=== PATIENT | male | born 1950 | race Asian ===

== ENCOUNTER 2019-04-18 14:06 | Emergency (ER) | payer MEDICAID, SELFPAY ==
[2019-04-18 14:10] VITALS: BP 173/94; PULSE 79; RESP 15; TEMP 36.3; O2SAT 98; BMI 25.7
--- NOTE | 2019-04-18 14:17 | DI.RAD.S_ITS ---
PROCEDURE: XR CHEST 1V INDICATIONS: Chest pain TECHNIQUE: One view of the chest was acquired. COMPARISON: None. FINDINGS: Surgical changes and devices: None. Lungs and pleura: Mild increased vascularity.. No pleural effusions or pneumothorax. Mediastinum: Mediastinal contours appear normal. Heart size is mildly prominent. Bones and chest wall: No suspicious bony lesions. Overlying soft tissues appear unremarkable. IMPRESSION: Increased vascularity suggestive of edema. Dictated by: Jaylin Arrington M.D. on 04/18/2019 at 13:53 Approved by: Jaylin Arrington M.D. on 04/18/2019 at 13:53
[2019-04-18 14:27] LABS: Add Manual Diff / Slide Review NO; Basophils Absolute Auto 0 /uL (0-100); Basophils Percent Auto 0.7 % (0-2); Eosinophils Absolute Auto 300 /uL (0-450); Eosinophils Percent Auto 4.7 % (2-4); Hematocrit 40.1 % (41-53); Hemoglobin 13.9 g/dL (13.5-17.5); Lymphocytes Absolute Auto 1800 /uL (1100-4500); Lymphocytes Percent Auto 32.7 % (25-40); Mean Corpuscular HGB Conc 34.7 % (30-36); Mean Corpuscular Volume 86.7 fL (80-100); Monocytes Absolute Auto 500 /uL (0-900); Monocytes Percent Auto 8.8 % (3-14); Neutrophils Absolute Auto 2900 /uL (1500-7000); Neutrophils Percent Auto 53.1 % (50-75); Platelet Count 203 X10^3/uL (150-400); Red Blood Cell Count 4.62 X10^6/uL (4.5-5.9); Red Cell Distribution Width 14.3 % (11.6-14.8); White Blood Cell Count 5.4 X10^3/uL (4.5-11.0)
[2019-04-18 14:33] LABS: INR 1.1 (0.9-1.3); Prothrombin Time 12.2 SECONDS (10.1-12.7)
[2019-04-18 14:35] LABS: PTT Partial Thromboplastin Tim 29 SECONDS (26.4-36.2)
[2019-04-18 14:37] LABS: Alanine Aminotransferase 31 IU/L (<50); Albumin 4.7 g/dL (3.5-5.0); Albumin Globulin Ratio 1.5 (1.0-2.8); Alkaline Phosphatase 73 U/L (38-126); Aspartate Aminotransferase 37 IU/L (17-59); Bilirubin Total 1.4 mg/dL (0.2-1.3); Blood Urea Nitrogen 11 mg/dL (9-20); Calcium 9.6 mg/dL (8.4-10.2); Carbon Dioxide 30 mmol/L (22-32); Chloride 97 mmol/L (98-107); Estimated Glomerular Filt Rate > 60.0 mL/min (>60); Globulin 3.2 g/dL (1.7-4.1); Glucose 157 mg/dL (80-110); HEMOLYSIS < 15 (0-50); Lipase 102 U/L (23-300); Potassium 3.9 mmol/L (3.4-5.1); Sodium 135 mmol/L (137-145); Total Protein 7.9 g/dL (6.3-8.2)
--- NOTE | 2019-04-18 14:57 | ED_ITS ---
HPI - Chest Pain General Chief Complaint: Chest Pain Stated Complaint: chest pain - sent from [place] Time Seen by Provider: 04/18/19 14:16 Source: patient Mode of arrival: Ambulatory Limitations: no limitations History of Present Illness HPI narrative: 68-year-old male sent over from the walk-in clinic for evaluation of chest pain. He states that for the past several weeks if not past several months he has had occasional chest discomfort. Somewhat difficult for him to express the type of discomfort he is having however does appear to be gradual onset that eventually resolves on its own. Does not seem to be associated with shortness of breath. Not worse with movement or palpation or breathing. Has not talk with his primary doctor about this. Has recently had a stroke. Has left-sided deficits from this. He states that last evening he had left-sided discomfort similar to his prior episodes. He was sitting on the couch at the time. Again not worse with palpation breathing or movement. He states that it has been continuous since last evening. Did have times when the pain was worse than others. He is currently having discomfort. Has not tried anything for his pain prior to arrival. Related Data Home Medications Medication Instructions Recorded Confirmed aspirin 81 mg PO DAILY 04/18/19 04/18/19 atorvastatin 40 mg PO QPM 04/18/19 04/18/19 clopidogrel 75 mg PO DAILY 04/18/19 04/18/19 metformin 500 mg PO BID 04/18/19 04/18/19 Previous Rx's Medication Instructions Recorded aspirin [Enteric Coated Aspirin] 81 mg PO DAILY #30 tab 04/18/19 atorvastatin 40 mg PO BEDTIME #30 tab 04/18/19 clopidogrel [Plavix] 75 mg PO DAILY #30 tab 04/18/19 metformin 500 mg PO BID #60 tab 04/18/19 Allergies Allergy/AdvReac Type Severity Reaction Status Date / Time No Known Drug Allergies Allergy Verified 04/18/19 14:21 Review of Systems Constitutional Constitutional: Denies headache(s) ENT Ears, Nose, Mouth, and Throat: Denies headache(s) Cardiovascular Cardiovascular: Reports chest pain, Denies rapid heart rate, Denies pedal edema and Denies dyspnea Respiratory Respiratory: Denies cough and Denies dyspnea Gastrointestinal Gastrointestinal: Denies abdominal pain, Denies nausea and Denies vomiting Musculoskeletal Musculoskeletal: Denies myalgias and Denies arthralgias Integumentary/Breasts Skin/Breast: Denies lesions and Denies rash Neurologic Neurologic: Denies behavioral changes and Denies headache(s) Psychiatric Psychiatric: Denies behavioral changes Hematologic/Lymphatic Hematologic/Lymphatic: Denies easy bleeding and Denies easy bruising Patient History Medical History Diabetes (Acute) History of stroke (Acute) Social History Smoking Status: Unknown if ever smoked alcohol intake frequency: holidays/special occasions only Substance Use Type: does not use Exam Initial Vital Signs Initial Vital Signs: Vital Signs Temperature 97.3 F L 04/18/19 14:10 Pulse Rate 79 04/18/19 14:10 Respiratory Rate 15 04/18/19 14:10 Blood Pressure 173/94 H 04/18/19 14:10 Pulse Oximetry 98 04/18/19 14:10 Const General: cooperative, comfortable and well developed Orientation: alert, awake and oriented x3 HENMT Head: normal to inspection and normocephalic Resp Effort & Inspection: normal respiratory effort Auscultation: clear to auscultation bilaterally Cardio Rate: regular rate Rhythm: regular rhythm GI Inspection: non-distended Palpation: soft, No firm and No tender Skin Lesions: no lesions Rashes: no rashes Neuro General: alert, awake and oriented x3 Cognition: normal cognition Speech: speech normal Motor: muscle tone normal throughout Extrem General: normal to inspection and capillary refill normal Psych Appearance: grossly normal and well kempt Scores GCS Valentín coma scale eye opening: Spontaneous Valentín coma scale verbal response: Orientated Valentín coma scale motor response: Obey commands Yale coma scale total score: 15 HEART Score Heart Score history: Slightly Suspicious Heart Score EKG: Normal Heart Score Age: > or = 65 years old Heart Score risk factors: 1-2 risk factors Heart Score troponin: < or = to normal limit Heart Score Total: 3 Course Orders Ordered: ED Orders 04/18/19 14:17 XR chest 1V Stat B Type Natriuretic Peptide Stat Complete Blood Count AUTO DIFF Stat Comprehensive Metabolic Panel Stat Lipase Stat Partial Thromboplastin Time Stat Prothrombin Time INR Stat Troponin I Stat EKG-12 Lead Stat 04/18/19 17:16 Troponin I Stat Vital Signs Vital signs: Vital Signs - 8 hr 04/18/19 14:10 04/18/19 15:45 04/18/19 16:15 Temperature 97.3 F L Pulse Rate 79 71 70 Respiratory Rate 15 16 16 Blood Pressure 173/94 H Blood Pressure [Left Arm] 133/83 153/91 H Pulse Oximetry 98 96 98 04/18/19 16:45 04/18/19 17:15 Temperature Pulse Rate 69 70 Respiratory Rate 14 14 Blood Pressure Blood Pressure [Left Arm] 134/69 125/63 Pulse Oximetry 99 98 MDM - Chest Pain Lab Data Attestation: I reviewed the patient's lab results. Result diagrams: 04/18/19 14:17 04/18/19 14:17 Labs: Lab Results 04/18/19 04/18/19 04/18/19 Range/Units 14:17 14:17 14:17 WBC 5.4 (4.5-11.0) X10^3/uL RBC 4.62 (4.5-5.9) X10^6/uL Hgb 13.9 (13.5-17.5) g/dL Hct 40.1 L (41-53) % MCV 86.7 (80-100) fL MCH 30.0 (26-34) PG MCHC 34.7 (30-36) % RDW 14.3 (11.6-14.8) % Plt Count 203 (150-400) X10^3/uL Neut % (Auto) 53.1 (50-75) % Lymph % (Auto) 32.7 (25-40) % [place] % (Auto) 8.8 (3-14) % Eos % (Auto) 4.7 H (2-4) % Baso % (Auto) 0.7 (0-2) % Neut # (Auto) 2900 (9403-1724) /uL Lymph # (Auto) 1800 (7348-5053) /uL [place] # (Auto) 500 (0-900) /uL Eos # (Auto) 300 (0-450) /uL Baso # (Auto) 0 (0-100) /uL PT 12.2 (10.1-12.7) SECONDS INR 1.1 (0.9-1.3) APTT 29 (26.4-36.2) SECONDS Sodium 135 L (137-145) mmol/L Potassium 3.9 (3.4-5.1) mmol/L Chloride 97 L (98-107) mmol/L Carbon Dioxide 30 (22-32) mmol/L BUN 11 (9-20) mg/dL Creatinine 1.10 (0.66-1.25) mg/dL Estimated GFR > 60.0 (>60) mL/min BUN/Creatinine Ratio 10.0 (6-22) Glucose 157 H (80-110) mg/dL Calcium 9.6 (8.4-10.2) mg/dL Total Bilirubin 1.4 H (0.2-1.3) mg/dL AST 37 (17-59) IU/L ALT 31 (<50) IU/L Alkaline Phosphatase 73 (38-126) U/L Troponin I (0.01-0.034) ng/mL B-Natriuretic Peptide (<100) Total Protein 7.9 (6.3-8.2) g/dL Albumin 4.7 (3.5-5.0) g/dL Globulin 3.2 (1.7-4.1) g/dL Albumin/Globulin Ratio 1.5 (1.0-2.8) Lipase 102 (23-300) U/L 04/18/19 04/18/19 04/18/19 Range/Units 14:17 14:17 17:16 WBC (4.5-11.0) X10^3/uL RBC (4.5-5.9) X10^6/uL Hgb (13.5-17.5) g/dL Hct (41-53) % MCV (80-100) fL MCH (26-34) PG MCHC (30-36) % RDW (11.6-14.8) % Plt Count (150-400) X10^3/uL Neut % (Auto) (50-75) % Lymph % (Auto) (25-40) % [place] % (Auto) (3-14) % Eos % (Auto) (2-4) % Baso % (Auto) (0-2) % Neut # (Auto) (6080-1717) /uL Lymph # (Auto) (2452-0986) /uL [place] # (Auto) (0-900) /uL Eos # (Auto) (0-450) /uL Baso # (Auto) (0-100) /uL PT (10.1-12.7) SECONDS INR (0.9-1.3) APTT (26.4-36.2) SECONDS Sodium (137-145) mmol/L Potassium (3.4-5.1) mmol/L Chloride (98-107) mmol/L Carbon Dioxide (22-32) mmol/L BUN (9-20) mg/dL Creatinine (0.66-1.25) mg/dL Estimated GFR (>60) mL/min BUN/Creatinine Ratio (6-22) Glucose (80-110) mg/dL Calcium (8.4-10.2) mg/dL Total Bilirubin (0.2-1.3) mg/dL AST (17-59) IU/L ALT (<50) IU/L Alkaline Phosphatase (38-126) U/L Troponin I < 0.012 < 0.012 (0.01-0.034) ng/mL B-Natriuretic Peptide < 100 (<100) Total Protein (6.3-8.2) g/dL Albumin (3.5-5.0) g/dL Globulin (1.7-4.1) g/dL Albumin/Globulin Ratio (1.0-2.8) Lipase (23-300) U/L Imaging Data Chest x-ray: Radiologist's impression: [place] [address] XRay Report Signed Patient: Nicole Gonzalez#: [id number] : 2Acct:[id number] Age/Sex: 68 / MDate of Service: 04/18/19 Loc: ED Accession Number: [id number] Procedure: XR chest 1V Ordering Provider: John Duffy D.O. PROCEDURE: XR CHEST 1V INDICATIONS: Chest pain TECHNIQUE: One view of the chest was acquired. COMPARISON: None. FINDINGS: Surgical changes and devices: None. Lungs and pleura: Mild increased vascularity.. No pleural effusions or pneumo thorax. Mediastinum: Mediastinal contours appear normal. Heart size is mildly prominent. Bones and chest wall: No suspicious bony lesions. Overlying soft tissues appear unremarkable. IMPRESSION: Increased vascularity suggestive of edema. Dictated by: Jaylin Arrington M.D. on 04/18/2019 at 13:53 Approved by: Jaylin Arrington M.D. on 04/18/2019 at 13:53 ECG Data Attestation: I personally reviewed and interpreted this ECG as follows: Prior ECG tracings: not available for review Interpretation: Sinus rhythm Ventricular rate of 75 Normal axis Normal intervals Normal QRS Normal QTC No ST T wave changes MDM Narrative Medical decision making narrative: Patient is low risk heart score. EKG is unremarkable. Troponins negative x2. Chest x-ray is negative. Has a follow-up with his primary doctor on the of this month. Refilled his medications. Was given return precautions and follow-up instructions. Discharge Plan Departure Patient Disposition: Home Clinical Impression: Atypical chest pain Instructions: DI for Atypical Chest Pain Activity Restrictions/Additional Instructions: Take all of your medications as directed. Keep all of your scheduled medical appointments. Return to the emergency department for any new or worsening symptoms Prescriptions: New aspirin [Enteric Coated Aspirin] 81 mg tablet,delayed release (DR/EC) 81 mg PO DAILY Qty: 30 RF: 0 atorvastatin 40 mg tablet 40 mg PO BEDTIME Qty: 30 RF: 0 clopidogrel [Plavix] 75 mg tablet 75 mg PO DAILY Qty: 30 RF: 0 metformin 500 mg tablet 500 mg PO BID Qty: 60 RF: 0 No Action metformin 500 mg Tablet 500 mg PO BID RF: 0 atorvastatin 80 mg Tablet 40 mg PO QPM RF: 0 clopidogrel 75 mg Tablet 75 mg PO DAILY RF: 0 aspirin 81 mg Tablet,Delayed Release (Dr/Ec) 81 mg PO DAILY RF: 0
[2019-04-18 15:08] LABS: Troponin I < 0.012 ng/mL (0.01-0.034)
[2019-04-18 15:26] LABS: B Type Natriuretic Peptide < 100 (<100)
[2019-04-18 15:45] VITALS: BP 133/83; PULSE 71; RESP 16; O2SAT 96
[2019-04-18 16:15] VITALS: BP 153/91; PULSE 70; RESP 16; O2SAT 98
[2019-04-18 16:45] VITALS: BP 134/69; PULSE 69; RESP 14; O2SAT 99
[2019-04-18 17:15] VITALS: BP 125/63; PULSE 70; RESP 14; O2SAT 98
[2019-04-18 17:47] LABS: Troponin I < 0.012 ng/mL (0.01-0.034)
[2019-04-18 18:49] VITALS: BP 129/76; PULSE 69; RESP 16; O2SAT 98
== END 2019-04-18 18:49 | disposition home or self-care (01) ==
PROVIDERS: Emergency Provider Emergency Medicine
DX: R07.89 Other chest pain (principal); E11.9 Type 2 diabetes mellitus without complications
CPT/HCPCS: 36415; 71045; 80053; 83690; 83880; 84484; 85025; 85610; 85730; 93005; 99283; 99285

== ENCOUNTER → 2019-04-27 08:50 | Outpatient (CLI) | payer MEDICAID, SELFPAY ==
[2019-04-27 09:54] LABS: Alanine Aminotransferase 25 IU/L (<50); Albumin 4.6 g/dL (3.5-5.0); Albumin Globulin Ratio 1.6 (1.0-2.8); Alkaline Phosphatase 100 U/L (38-126); Aspartate Aminotransferase 28 IU/L (17-59); Bilirubin Total 1.3 mg/dL (0.2-1.3); Blood Urea Nitrogen 10 mg/dL (9-20); Calcium 9.8 mg/dL (8.4-10.2); Carbon Dioxide 29 mmol/L (22-32); Chloride 103 mmol/L (98-107); Estimated Glomerular Filt Rate > 60.0 mL/min (>60); Globulin 2.8 g/dL (1.7-4.1); Glucose 154 mg/dL (80-110); HEMOLYSIS < 15 (0-50); Potassium 3.8 mmol/L (3.4-5.1); Sodium 142 mmol/L (137-145); Total Protein 7.4 g/dL (6.3-8.2)
== END ==
PROVIDERS: Visit Provider Family Medicine
DX: R07.89 Other chest pain (principal)
CPT/HCPCS: 36415; 80053

== ENCOUNTER → 2019-06-30 10:51 | Outpatient (CLI) | payer MEDICARE, MEDICAID, SELFPAY ==
[2019-06-30 12:24] LABS: Hemoglobin A1C% w Est Avg Glu 7.4 % (4.0-6.0)
[2019-06-30 12:40] LABS: Cholesterol 122 mg/dL (140-199); Glucose 162 mg/dL (80-110); HDL Cholesterol 55 mg/dL (40-60); LDL Cholesterol Calculated 52 mg/dL (<100); Triglycerides 77 mg/dL (35-150)
[2019-06-30 15:17] LABS: Creatinine Urine Random 54.1 mg/dL
[2019-06-30 15:23] LABS: Microalbumin Urine Random < 0.6 mg/dL (0-1.6)
== END ==
PROVIDERS: PCP Family Medicine; Referring Provider Family Medicine; Visit Provider Family Medicine
DX: Z13.220 Encounter for screening for lipoid disorders (principal); Z12.5 Encounter for screening for malignant neoplasm of prostate; E11.9 Type 2 diabetes mellitus without complications
CPT/HCPCS: 36415; 80061; 82043; 82570; 82947; 83036; 84153

== ENCOUNTER → 2019-07-18 13:48 | Outpatient (CLI) | payer MEDICARE, MEDICAID, SELFPAY ==
--- NOTE | 2019-07-18 14:53 | PM.TREADMILL ---
Cardiac Stress Test Report Referral & Results Date Patient Seen: 07/18/19 Requesting provider: Sancho Baxter Indication: Chest discomfort Rest ECG: Unremarkable Procedure Note: Today following both written and verbal informed consent, the patient was exercised according to a standard Pan protocol. The patient exercised for a total of 3 minutes 4 seconds achieving a maximum heart rate of 133. Patient's maximum systolic blood pressure was 158. This was an estimated 4.6 MET's. Patient was really unable to master the process of walking on the treadmill and his exercise time was severely limited by his inability to keep up and go any faster than the basic 1st level. Because of this is heart rate did jump up but his blood pressure remained relatively stable To the extent of his ability to exercise on the treadmill no evidence of ischemia seen there are no ST-T segment changes. Occasional to rare PVC were noted His Function aerobic impairment rates about 55% on the sedentary scale Impression: No evidence of ischemia with limited exercise capacity as above. If clinical concern warrants this certainly can and perhaps even should be repeated with Lexiscan instead of exercise, as patient was really unable to keep up with the treadmill. Please note: Actual ECG tracings can be found in the PACS system.
== END ==
PROVIDERS: PCP Family Medicine; Referring Provider Family Medicine; Visit Provider Family Medicine
DX: R07.89 Other chest pain (principal); I10 Essential (primary) hypertension; E78.5 Hyperlipidemia, unspecified
CPT/HCPCS: 93016; 93017; 93018

== ENCOUNTER → 2020-03-22 16:49 | Outpatient (CLI) | payer MEDICARE, MEDICAID, SELFPAY ==
[2020-03-22 17:30] LABS: Add Manual Diff / Slide Review NO; Basophils Absolute Auto 0 /uL (0-100); Basophils Percent Auto 0.9 % (0-2); Eosinophils Absolute Auto 300 /uL (0-450); Eosinophils Percent Auto 5.8 % (2-4); Hematocrit 36.4 % (41-53); Hemoglobin 12.7 g/dL (13.5-17.5); Lymphocytes Absolute Auto 1000 /uL (1100-4500); Lymphocytes Percent Auto 20.4 % (25-40); Mean Corpuscular HGB Conc 34.9 % (30-36); Mean Corpuscular Hemoglobin 30.6 PG (26-34); Mean Corpuscular Volume 87.7 fL (80-100); Monocytes Absolute Auto 400 /uL (0-900); Monocytes Percent Auto 7.9 % (3-14); Neutrophils Absolute Auto 3200 /uL (1500-7000); Platelet Count 239 X10^3/uL (150-400); Red Blood Cell Count 4.15 X10^6/uL (4.5-5.9); Red Cell Distribution Width 13.9 % (11.6-14.8)
[2020-03-22 17:36] LABS: Hemoglobin A1C% w Est Avg Glu 7.7 % (4.0-6.0)
[2020-03-22 17:43] LABS: Alanine Aminotransferase 18 IU/L (<50); Albumin 4.5 g/dL (3.5-5.0); Albumin Globulin Ratio 1.4 (1.0-2.8); Alkaline Phosphatase 79 U/L (38-126); Aspartate Aminotransferase 27 IU/L (17-59); BUN Creatinine Ratio 11.5 (6-22); Bilirubin Total 1.2 mg/dL (0.2-1.3); Blood Urea Nitrogen 11 mg/dL (9-20); Calcium 9.4 mg/dL (8.4-10.2); Carbon Dioxide 29 mmol/L (22-32); Chloride 97 mmol/L (98-107); Estimated Glomerular Filt Rate > 60.0 mL/min (>60); Globulin 3.3 g/dL (1.7-4.1); Glucose 132 mg/dL (80-110); HEMOLYSIS < 15 (0-50); Potassium 3.9 mmol/L (3.4-5.1); Sodium 133 mmol/L (137-145); Total Protein 7.8 g/dL (6.3-8.2)
== END ==
PROVIDERS: PCP Family Medicine; Referring Provider Family Medicine; Visit Provider Family Medicine
DX: E11.9 Type 2 diabetes mellitus without complications (principal); E78.5 Hyperlipidemia, unspecified; I10 Essential (primary) hypertension
CPT/HCPCS: 36415; 80053; 83036; 85025

== ENCOUNTER → 2020-06-21 16:58 | Outpatient (CLI) | payer MEDICARE, MEDICAID, SELFPAY ==
[2020-06-21 17:36] LABS: Hemoglobin A1C% w Est Avg Glu 7.6 % (4.0-6.0)
[2020-06-21 18:02] LABS: Alanine Aminotransferase 16 IU/L (<50); Albumin 4.4 g/dL (3.5-5.0); Albumin Globulin Ratio 1.5 (1.0-2.8); Alkaline Phosphatase 74 U/L (38-126); Aspartate Aminotransferase 25 IU/L (17-59); BUN Creatinine Ratio 9.5 (6-22); Bilirubin Total 1.1 mg/dL (0.2-1.3); Blood Urea Nitrogen 9 mg/dL (9-20); Calcium 9.4 mg/dL (8.4-10.2); Carbon Dioxide 29 mmol/L (22-32); Chloride 93 mmol/L (98-107); Cholesterol 154 mg/dL (140-199); Estimated Glomerular Filt Rate > 60.0 mL/min (>60); Glucose 122 mg/dL (80-110); HDL Cholesterol 53 mg/dL (40-60); HEMOLYSIS < 15 (0-50); LDL Cholesterol Calculated 80 mg/dL (<100); Potassium 3.8 mmol/L (3.4-5.1); Sodium 130 mmol/L (137-145); Total Protein 7.4 g/dL (6.3-8.2); Triglycerides 107 mg/dL (35-150)
== END ==
PROVIDERS: PCP Family Medicine; Referring Provider Family Medicine; Visit Provider Family Medicine
DX: E11.9 Type 2 diabetes mellitus without complications (principal); E78.5 Hyperlipidemia, unspecified; I10 Essential (primary) hypertension
CPT/HCPCS: 36415; 80053; 80061; 83036

== ENCOUNTER → 2020-07-25 14:07 | Outpatient (CLI) | payer MEDICARE, MEDICAID, SELFPAY ==
--- NOTE | 2020-07-25 14:51 | DIET.PN ---
Diabetes Intake: Initial Assessment Assess: Mr. Gonzalez is a 69 yom referred for newly diagnosed type 2 diabetes. Most common jacquelyn include vegetables and rice for nearly every meal. He sometimes has chicken, fish, or beef. He generally snacks on fruit and nuts in the evening. He walks 30-60 min 2-3x/week. He has been monitoring his fasting glucose, which ranges in the 150?s. Labs: Per pt report: A1c: 7.6 Meds: metformin 500mg BID Diet: per 24 hr recall: B: vegetables and rice; eggs L: vegetable stir-olsen D: vegetable, rice, and beef Sn: fruit; peanut butter; mixed nuts Wt: 145 Ht: 62in BMI: 26.6 BP: 140/80 DX: Altered nutrition related laboratory values related to impaired glucose metabolism, lack of previous exposure to nutrition information as evidenced by pt report, diagnosis of diabetes, previous diet high in refined carbohydrates. Intervention: 1. Completed intake assessment. Discussed barriers to care. 2. Discussed pathophysiology of diabetes. Reviewed A1c and its correlation to blood glucose numbers. Discussed recommended BG ranges. 3. Discussed importance of self-monitoring, how often, and when to check. 4. Reviewed hyper/hypoglycemia and treatment. 5. Reviewed safe disposal of equipment (strip/lancets/insulin needles). 6. Created SMART goals for pt self-care and success. 7. Discussed program curriculum outline and class needs based on individual goals. SMART Goals: 1. A1c <7.0 through reduced portions of rice and including protein with each meal. Monitor/Evaluate: Pt will attend full DSME program. Basic Nutrition class scheduled for Aug 20.
== END ==
PROVIDERS: PCP Family Medicine; Referring Provider Family Medicine; Visit Provider Family Medicine
DX: E11.9 Type 2 diabetes mellitus without complications (principal)
CPT/HCPCS: G0108

== ENCOUNTER → 2021-03-11 14:56 | Outpatient (CLI) | payer MEDICARE, MEDICAID, SELFPAY ==
[2021-03-11 15:49] LABS: Hemoglobin A1C% w Est Avg Glu 7.7 % (4.0-6.0)
[2021-03-11 16:17] LABS: Alanine Aminotransferase 17 IU/L (<50); Albumin 4.6 g/dL (3.5-5.0); Albumin Globulin Ratio 1.5 (1.0-2.8); Alkaline Phosphatase 68 U/L (38-126); Aspartate Aminotransferase 25 IU/L (17-59); BUN Creatinine Ratio 14.9 (6-22); Bilirubin Total 0.8 mg/dL (0.2-1.3); Blood Urea Nitrogen 18 mg/dL (9-20); Calcium 9.8 mg/dL (8.4-10.2); Carbon Dioxide 28 mmol/L (22-32); Chloride 96 mmol/L (98-107); Cholesterol 156 mg/dL (140-199); Estimated Glomerular Filt Rate 59.5 mL/min (>60); Globulin 3.1 g/dL (1.7-4.1); Glucose 145 mg/dL (80-110); HDL Cholesterol 53 mg/dL (40-60); HEMOLYSIS < 15 (0-50); LDL Cholesterol Calculated 93 mg/dL (<100); Potassium 4.5 mmol/L (3.4-5.1); Sodium 134 mmol/L (137-145); Total Protein 7.7 g/dL (6.3-8.2); Triglycerides 50 mg/dL (35-150)
== END ==
PROVIDERS: PCP Family Medicine; Referring Provider Family Medicine; Visit Provider Family Medicine
DX: E11.9 Type 2 diabetes mellitus without complications (principal); I10 Essential (primary) hypertension; E78.5 Hyperlipidemia, unspecified
CPT/HCPCS: 36415; 80053; 80061; 83036

== ENCOUNTER 2023-03-26 16:16 | Emergency (ER) | payer MEDICARE, MEDICAID, SELFPAY ==
[2023-03-26 16:22] VITALS: BP 168/76; PULSE 80; O2SAT 98
[2023-03-26 16:24] VITALS: BP 168/76; PULSE 87; RESP 18; TEMP 36.9; O2SAT 100; BMI 26.5
--- NOTE | 2023-03-26 16:29 | DI.RAD.S_ITS ---
PROCEDURE: XR CHEST 1V INDICATIONS: chest pain TECHNIQUE: One view of the chest was acquired. COMPARISON: [facility], CR, XR CHEST 1V, 04/18/2019, 14:45. FINDINGS: Surgical changes and devices: None. Lungs and pleura: Lungs are clear. No pleural effusions or pneumothorax. Mediastinum: Mediastinal contours appear normal. Heart size is normal. Bones and chest wall: No suspicious bony lesions. Overlying soft tissues appear unremarkable. IMPRESSION: No evidence acute pulmonary process. Dictated by: Edward Jo M.D. on 03/26/2023 at 16:57 Approved by: Edward Jo M.D. on 03/26/2023 at 16:57
[2023-03-26 16:30] VITALS: PULSE 75; O2SAT 100
--- NOTE | 2023-03-26 16:32 | ED.CHESTPAIN ---
HPI - Chest Pain General Chief Complaint: Chest Pain Stated Complaint: chest pain Time Seen by Provider: 03/26/23 16:22 Source: patient Mode of arrival: Ambulatory Limitations: no limitations History of Present Illness HPI narrative: 72-year-old male with history of diabetes, hypertension, previous CVA (occasional balance issues as residual deficit) presents by private vehicle from home for 3 months of left-sided, sharp, intermittent chest pain. Here today because he told his son for the first time about his chest pains, his son was concerned and brought him in for evaluation. Son states that 2 years ago he complained of chest pain and had an EKG at his primary care doctor's office, but has not seen a endoscopy technican. Pain is worse at night and with lying down. Related Data Previous Rx's Medication Instructions Recorded atorvastatin 40 mg tablet 40 mg PO BEDTIME #90 tabs 03/11/21 lisinopril 20 mg tablet 20 mg PO DAILY #90 tabs 03/11/21 aspirin 81 mg tablet,delayed 81 mg PO DAILY #90 tabs 10/15/22 release atorvastatin 40 mg tablet 40 mg PO BEDTIME #90 tabs 10/15/22 lisinopril 20 mg tablet 20 mg PO DAILY #90 tabs 10/15/22 omeprazole 20 mg capsule,delayed 20 mg PO DAILY #90 caps 10/15/22 release pioglitazone 15 mg tablet (Actos) 15 mg PO DAILY #90 tabs 10/15/22 sitagliptin phosphate 50 1 tab PO BID #180 tabs 10/15/22 mg-metformin 1,000 mg tablet (Janumet) linagliptin 2.5 mg-metformin 500 1 tab PO BID #60 tabs 02/04/23 mg tablet (Jentadueto) famotidine 20 mg tablet 20 mg PO BEDTIME #30 tabs 03/26/23 Allergies Allergy/AdvReac Type Severity Reaction Status Date / Time No Known Drug Allergies Allergy Verified 03/26/23 16:26 Review of Systems Review of Systems Narrative: Negative except as noted above Patient History Medical History Atypical chest pain Diabetes GERD (gastroesophageal reflux disease) History of stroke (~2018) Hyperlipidemia Hypertension (~1997) Social History Smoking Status: Never smoker eating out: 1-3 times/week Type(s) of exercise: walking Smoking Status: Never smoker alcohol intake frequency: holidays/special occasions only Substance Use Type: does not use Exam Initial Vital Signs Initial Vital Signs: Vital Signs Pulse Rate 80 03/26/23 16:22 Blood Pressure 168/76 H 03/26/23 16:22 Pulse Oximetry 98 03/26/23 16:22 Const: Awake, alert, no acute distress, nontoxic appearing Eyes: PERRL, EOMI, conjunctiva normal ENT: Atraumatic, dentition normal, mucous membranes moist Cardiac: regular rate, regular rhythm RESP: unlabored, clear bilaterally, no wheezing GI: Atraumatic, soft, nontender, nondistended, no rebound, no guarding MSK: Atraumatic, full range of motion, pulses equal Skin: Warm, Dry, intact, no rashes Neuro: AO x3, CN II-XII grossly intact, moves all extremities Psych: affect normal, mood normal, not suicidal, not homicidal Scores HEART Score Heart Score history: Slightly Suspicious Heart Score EKG: Normal Heart Score Age: > or = 65 years old Heart Score risk factors: > 3 risk factors or hx of atherosclerotic disease Heart Score troponin: < or = to normal limit Heart Score Total: 4 Course Orders Ordered: ED Orders 03/26/23 16:26 Complete Blood Count AUTO DIFF Stat Comprehensive Metabolic Panel Stat Lipase Stat Magnesium Stat PTT Partial Thromboplastin Akash Stat Prothrombin Time INR Stat Troponin & CK Cardiac Panel Stat 03/26/23 16:29 XR chest 1V Stat 03/26/23 16:35 EKG-12 Lead Stat Reevaluation(s) Reevaluation #1: Laboratory work is unremarkable. EKG is normal sinus rhythm without concerning ischemic findings. Given that this chest pain has been intermittent for the last 3 months it is low risk for acute coronary syndrome at this time. Patient and son at bedside were counseled of all results. Patient advised that he does have coronary disease risk factors and it would be advisable for him to follow up with a heart doctor. A referral was provided in the patient's paperwork and he was advised to call for a follow up appointment. With the exacerbation of chest pain when lying down we will trial low-dose antacid to see if this improves patient's symptoms. ED return precautions discussed at bedside. Patient expressed understanding of the plan and is in agreement at this time. All questions answered at the time of discharge. Vital Signs Vital signs: Vital Signs - 8 hr 03/26/23 16:22 03/26/23 16:22 03/26/23 16:24 Temperature 98.5 F Pulse Rate 80 87 Respiratory Rate 18 Blood Pressure 168/76 H 168/76 H Pulse Oximetry 98 100 Oxygen Delivery Method Room Air 03/26/23 16:30 03/26/23 17:00 03/26/23 17:30 Temperature Pulse Rate 75 67 69 Respiratory Rate 13 16 Blood Pressure Pulse Oximetry 100 99 99 Oxygen Delivery Method Room Air Room Air MDM - Chest Pain Differential Diagnosis Differential diagnosis: Likely stable angina, unstable angina pectoris and atypical chest pain Lab Data 03/26/23 16:26 03/26/23 16:26 Labs: Lab Results 03/26/23 Range/Units 16:26 WBC 6.0 (4.5-11.0) X10^3/uL RBC 3.96 L (4.5-5.9) X10^6/uL Hgb 12.0 L (13.5-17.5) g/dL Hct 34.2 L (41-53) % MCV 86.5 (80-100) fL MCH 30.2 (26-34) PG MCHC 34.9 (30-36) % RDW 13.7 (11.6-14.8) % Plt Count 220 (150-400) X10^3/uL Neut % (Auto) 58.0 (50-75) % Lymph % (Auto) 25.5 (25-40) % [place] % (Auto) 9.1 (3-14) % Eos % (Auto) 6.5 H (2-4) % Baso % (Auto) 0.9 (0-2) % Neut # (Auto) 3500 (4048-6460) /uL Lymph # (Auto) 1500 (6030-3490) /uL [place] # (Auto) 500 (0-900) /uL Eos # (Auto) 400 (0-450) /uL Baso # (Auto) 100 (0-100) /uL PT 11.5 (10.1-12.7) SECONDS INR 1.0 (0.9-1.3) APTT 28 (26-36) SECONDS Sodium 125 L (137-145) mmol/L Potassium 4.3 (3.4-5.1) mmol/L Chloride 91 L (98-107) mmol/L Carbon Dioxide 26 (22-32) mmol/L BUN 14 (9-20) mg/dL Creatinine 1.12 (0.66-1.25) mg/dL Estimated GFR > 60 (>60) mL/min BUN/Creatinine Ratio 12.5 (6-22) Glucose 231 H (80-110) mg/dL Calcium 8.7 (8.4-10.2) mg/dL Magnesium 1.8 (1.6-2.3) mg/dL Total Bilirubin 0.6 (0.2-1.3) mg/dL AST 27 (17-59) IU/L ALT 22 (<50) IU/L Alkaline Phosphatase 103 (38-126) U/L Total Creatine Kinase 93 (55-170) U/L Troponin I < 0.012 (0.01-0.034) ng/mL Total Protein 7.6 (6.3-8.2) g/dL Albumin 4.3 (3.5-5.0) g/dL Globulin 3.3 (1.7-4.1) g/dL Albumin/Globulin Ratio 1.3 (1.0-2.8) Lipase 147 (23-300) U/L ECG Data Interpretation: Normal sinus rhythm, rate 74 beats per minute. Normal axis, no STEMI Discharge Plan Departure Patient Disposition: Home Clinical Impression: Chest pain Qualifiers: Chest pain type: unspecified Qualified Code(s): R07.9 - Chest pain, unspecified Instructions: DI for Chest Pain Prescriptions: New famotidine 20 mg tablet 20 mg PO BEDTIME Qty: 30 0RF No Action Jentadueto 2.5-500 mg tablet 1 tab PO BID Qty: 60 3RF aspirin 81 mg tablet,delayed release (DR/EC) 81 mg PO DAILY Qty: 90 3RF atorvastatin 40 mg tablet 40 mg PO BEDTIME Qty: 90 3RF Rx Instructions: NEEDS APPT BEFORE NEXT FILL AND LABS!! lisinopril 20 mg tablet 20 mg PO DAILY Qty: 90 3RF Rx Instructions: NEEDS APPT MADE AND LABS BEFORE NEXT FILL! omeprazole 20 mg capsule,delayed release(DR/EC) 20 mg PO DAILY Qty: 90 3RF pioglitazone [Actos] 15 mg tablet 15 mg PO DAILY Qty: 90 3RF Janumet 50-1,000 mg tablet 1 tab PO BID Qty: 180 3RF atorvastatin 40 mg tablet 40 mg PO BEDTIME Qty: 90 3RF Rx Instructions: Appointment due. Thank you! lisinopril 20 mg tablet 20 mg PO DAILY Qty: 90 3RF Referrals: Melina Diaz MD [Physician] - Sancho Baxter DO [Physician] - Stand Alone Forms: Patient Portal/API
[2023-03-26 16:50] LABS: Add Manual Diff / Slide Review NO; Basophils Absolute Auto 100 /uL (0-100); Basophils Percent Auto 0.9 % (0-2); Eosinophils Absolute Auto 400 /uL (0-450); Eosinophils Percent Auto 6.5 % (2-4); Hematocrit 34.2 % (41-53); Lymphocytes Absolute Auto 1500 /uL (1100-4500); Lymphocytes Percent Auto 25.5 % (25-40); Mean Corpuscular HGB Conc 34.9 % (30-36); Mean Corpuscular Hemoglobin 30.2 PG (26-34); Mean Corpuscular Volume 86.5 fL (80-100); Monocytes Absolute Auto 500 /uL (0-900); Monocytes Percent Auto 9.1 % (3-14); Neutrophils Absolute Auto 3500 /uL (1500-7000); Platelet Count 220 X10^3/uL (150-400); Red Blood Cell Count 3.96 X10^6/uL (4.5-5.9); Red Cell Distribution Width 13.7 % (11.6-14.8)
[2023-03-26 16:55] LABS: Prothrombin Time 11.5 SECONDS (10.1-12.7)
[2023-03-26 16:57] LABS: PTT Partial Thromboplastin Tim 28 SECONDS (26-36)
[2023-03-26 16:58] LABS: Alanine Aminotransferase 22 IU/L (<50); Albumin 4.3 g/dL (3.5-5.0); Albumin Globulin Ratio 1.3 (1.0-2.8); Alkaline Phosphatase 103 U/L (38-126); Aspartate Aminotransferase 27 IU/L (17-59); BUN Creatinine Ratio 12.5 (6-22); Bilirubin Total 0.6 mg/dL (0.2-1.3); Blood Urea Nitrogen 14 mg/dL (9-20); Calcium 8.7 mg/dL (8.4-10.2); Carbon Dioxide 26 mmol/L (22-32); Chloride 91 mmol/L (98-107); Creatine Kinase 93 U/L (55-170); Estimated Glomerular Filt Rate > 60 mL/min (>60); Globulin 3.3 g/dL (1.7-4.1); Glucose 231 mg/dL (80-110); HEMOLYSIS < 15 (0-50); Lipase 147 U/L (23-300); Magnesium 1.8 mg/dL (1.6-2.3); Potassium 4.3 mmol/L (3.4-5.1); Sodium 125 mmol/L (137-145); Total Protein 7.6 g/dL (6.3-8.2)
[2023-03-26 17:00] VITALS: PULSE 67; RESP 13; O2SAT 99
[2023-03-26 17:09] LABS: Troponin I < 0.012 ng/mL (0.01-0.034)
[2023-03-26 17:30] VITALS: PULSE 69; RESP 16; O2SAT 99
[2023-03-26 17:54] VITALS: BP 145/71; PULSE 70; RESP 16; O2SAT 100
== END 2023-03-26 17:55 | disposition home or self-care (01) ==
PROVIDERS: Emergency Provider Emergency Medicine; PCP Registered Nurse
DX: R07.9 Chest pain, unspecified (principal); Z79.899 Other long term (current) drug therapy
CPT/HCPCS: 36415; 71045; 80053; 82550; 83690; 83735; 84484; 85025; 85610; 85730; 93005; 99284

== ENCOUNTER → 2024-12-11 10:09 | Day surgery (SDC) | payer MEDICARE, MEDICAID, SELFPAY ==
[2024-12-11 10:51] VITALS: BP 149/92; PULSE 96; RESP 16; TEMP 36.3; O2SAT 99
--- NOTE | 2024-12-11 10:57 | PM.HP.IH.1 ---
History of Present Illness History of Present Illness Date Patient Seen: 12/11/24 Chief complaint: [facility] Medical History GERD (gastroesophageal reflux disease) Atypical chest pain Hypertension (~1997) Hyperlipidemia History of stroke (~2018) Diabetes Social History marital status: number of children: 6 alcohol intake: never caffeine: Yes eating out: 1-3 times/week Type(s) of exercise: walking frequency: 3-4 times per week duration: 60-90 minutes/day Meds Home Medications and Allergies Home Medications ?Medication ?Instructions ?Recorded ?Confirmed ?Type aspirin 81 mg tablet,delayed 81 mg PO DAILY #90 tabs 10/15/22 12/11/24 Rx release atorvastatin 40 mg tablet 40 mg PO BEDTIME #90 tabs 10/15/22 10/16/24 Rx lisinopril 20 mg tablet 20 mg PO DAILY #90 tabs 10/15/22 12/11/24 Rx omeprazole 20 mg capsule,delayed 20 mg PO DAILY #90 caps 10/15/22 12/11/24 Rx release famotidine 20 mg tablet 20 mg PO BEDTIME #30 tabs 03/26/23 12/11/24 Rx metformin 500 mg tablet 500 mg PO BID 10/16/24 12/11/24 History semaglutide 0.25 mg or 0.5 mg (2 0.25 mg SUBCUT QWEEK 10/16/24 12/11/24 History mg/3 mL) subcutaneous pen injector (DanceOn) Held on 12/11/24. Instructions: waiting shipment semaglutide 7 mg tablet (Rybelsus) 7 mg PO DAILY 10/16/24 12/11/24 History Allergies Allergy/AdvReac Type Severity Reaction Status Date / Time No Known Drug Allergies Allergy Verified 12/11/24 10:40 Exam Vital Signs (past 8 hours): - 12/11/24 10:51 Temperature 97.4 F L Pulse Rate 96 H Respiratory Rate 16 Blood Pressure 149/92 H Pulse Oximetry 99 Oxygen Delivery Method Room Air Oxygen Delivery Method Room Air Assessment & Plan Assessment & Plan narrative: For screening colonoscopy. Risks, benefits, alternatives have been explained. Time-Based Coding :: [TOTAL MINUTES] spent with patient and on the chart (including review of chart, obtaining history, exam, reviewing outside data, placing orders, documenting exam and treatment plan, and counseling patient) on [DATE]. 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
--- NOTE | 2024-12-11 10:59 | PM.OP.COLON ---
Operative Date/Time/Diagnoses Date of procedure: 12/11/24 Time of procedure: 11:42 Pre-op diagnosis: See indication and findings Post-op diagnosis: same Procedure & Clinicians Study performed: Colonoscopy Same procedure(s) as scheduled: Yes Indications: For screening colonoscopy Surgeon: Violeta Rivera Anesthesia Type: Other Procedure Notes Procedure in detail: After informed consent was obtained the patient was placed in left lateral decubitus position. Video colonoscope was placed in the rectum slowly advanced cecum. Preparation was good. On slow withdrawal mucosa was carefully examined. The scope was removed. The patient tolerated procedure well. Blood loss none Complications none Sedation mac Findings 1. Normal colonoscopy to cecum Patient should have follow-up colonoscopy in 10 years if in excellent health
[2024-12-11] MEDS: LACTATED RINGERS 1,000 ML 42 ML IV (11:19)
[2024-12-11 11:45] VITALS: BP 94/54; PULSE 98; RESP 16; TEMP 36.2; O2SAT 98
[2024-12-11 11:50] VITALS: BP 93/50; PULSE 82; RESP 16; O2SAT 100
--- NOTE | 2024-12-11 11:53 | EKG_ITS ---
[address] [address] Test Date: 2024-12-11 Pat Name: Nicole Gonzalez Department: [facility] Room: Gender: Male Automated Process Operator: PANCHITO : 1950 Requested By: Order Number: [id number] Reading MD: Ankit Hanna Measurements Intervals [place] Rate: 92 P: [place]: QRS: 48 QRSD: 78 T: 29 QT: 374 QTc: 462 Interpretive Statements Atrial flutter with variable AV block Electronically Signed On 12-22-2024 8:48:23 PDT by Ankit Hanna
[2024-12-11 12:00] VITALS: BP 94/74; PULSE 77; RESP 16; TEMP 36.2; O2SAT 98
== END | disposition home or self-care (01) ==
PROVIDERS: PCP Family Medicine; Referring Provider Internal Medicine Gastroenterology; Visit Provider Internal Medicine Gastroenterology
PROC: 0DJD8ZZ Inspection of Lower Intestinal Tract, Via Natural or Artificial Opening Endoscopic (ICD-10-PCS; CPT 45378; principal; 2024-12-11 11:30)
DX: Z12.11 Encounter for screening for malignant neoplasm of colon (principal)
CPT/HCPCS: G0121; 82962; 93005; J2704

== ENCOUNTER 2024-12-11 12:35 | Emergency (ER) | payer MEDICARE, MEDICAID, SELFPAY ==
[2024-12-11] VITALS (8 sets, daily range): BP systolic 135–137; BP diastolic 55–77; PULSE 76–85; RESP 11–20; TEMP 37; O2SAT 98–99; BMI 26.5
--- NOTE | 2024-12-11 12:46 | DI.RAD.S_ITS ---
PROCEDURE: XR CHEST 1V INDICATIONS: Chest Pain TECHNIQUE: One view of the chest was acquired. COMPARISON: [facility], CR, XR CHEST 1V, 03/26/2023, 16:41. FINDINGS: Surgical changes and devices: None. Lungs and pleura: Lungs are clear. No pleural effusions or pneumothorax. Mediastinum: Mediastinal contours appear normal. Heart size is normal. Bones and chest wall: No suspicious bony lesions. Overlying soft tissues appear unremarkable. IMPRESSION: No acute cardiopulmonary pathology. Dictated by: Abhay Magallanes M.D. on 12/11/2024 at 13:14 Approved by: Abhay Magallanes M.D. on 12/11/2024 at 13:14
--- NOTE | 2024-12-11 12:58 | EKG_ITS ---
[address] [address] Test Date: 2024-12-11 Pat Name: Nicole Gonzalez Department: Room: Gender: Male [employer] Supervisor: VINCE : 1950 Requested By: Order Number: [id number] Reading MD: Ankit Hanna Measurements Intervals [place] Rate: 75 P: [place]: QRS: 28 QRSD: 78 T: 20 QT: 348 QTc: 388 Interpretive Statements Atrial flutter with variable AV block Electronically Signed On 12-22-2024 8:49:04 PDT by Ankit Hanna
[2024-12-11 13:18] LABS: INR 1.1 (0.9-1.3); Prothrombin Time 12.1 SECONDS (9.4-12.5)
[2024-12-11 13:21] LABS: PTT Partial Thromboplastin Tim 26 SECONDS (25.1-36.5)
[2024-12-11 13:22] LABS: Alanine Aminotransferase 33 IU/L (<50); Albumin 4.4 g/dL (3.5-5.0); Albumin Globulin Ratio 1.3 (1.0-2.8); Alkaline Phosphatase 79 U/L (38-126); Blood Urea Nitrogen 15 mg/dL (9-20); Calcium 9.2 mg/dL (8.4-10.2); Carbon Dioxide 27 mmol/L (22-32); Chloride 102 mmol/L (98-107); Creatine Kinase 98 U/L (55-170); Estimated Glomerular Filt Rate > 60 mL/min (>60); Globulin 3.3 g/dL (1.7-4.1); Glucose 181 mg/dL (70-99); HEMOLYSIS < 15 (0-50); Lipase 92 U/L (23-300); Magnesium 1.8 mg/dL (1.6-2.3); Potassium 4.7 mmol/L (3.4-5.1); Sodium 137 mmol/L (137-145); Total Protein 7.7 g/dL (6.3-8.2)
[2024-12-11 13:23] LABS: Add Manual Diff / Slide Review NO; Hematocrit 36.9 % (41-53); Hemoglobin 12.6 g/dL (13.5-17.5); Lymphocytes Absolute Auto 1000 /uL (1100-4500); Mean Corpuscular HGB Conc 34.1 % (30-36); Mean Corpuscular Hemoglobin 30.3 PG (26-34); Mean Corpuscular Volume 88.6 fL (80-100); Platelet Count 207 X10^3/uL (150-400)
[2024-12-11 13:34] LABS: NT-proBNP (BNP-Adult 18+) 177 pg/mL (<125); Troponin I < 0.012 ng/mL (0.01-0.034)
--- NOTE | 2024-12-11 14:30 | ED.ARRPALP ---
HPI - Arrhythmia/Palpitations General Chief Complaint: Arrhythmia/Palpitations Stated Complaint: sent by OR aflutter Time Seen by Provider: 12/11/24 13:20 Source: RN notes reviewed, old records reviewed and other Mode of arrival: other History of Present Illness HPI narrative: 74-year-old male with history of diabetes, hypertension, previous CVA (occasional balance issues as residual deficit), presents in atrial fibrillation after undergoing a colonoscopy earlier today in the OR. Currently the patient is asymptomatic. Related Data Home Medications ?Medication ?Instructions ?Recorded ?Confirmed metformin 500 mg tablet 500 mg PO BID 10/16/24 12/11/24 semaglutide 0.25 mg or 0.5 mg (2 0.25 mg SUBCUT QWEEK 10/16/24 12/11/24 mg/3 mL) subcutaneous pen injector (Ozempic) semaglutide 7 mg tablet (Rybelsus) 7 mg PO DAILY 10/16/24 12/11/24 Previous Rx's ?Medication ?Instructions ?Recorded aspirin 81 mg tablet,delayed 81 mg PO DAILY #90 tabs 10/15/22 release atorvastatin 40 mg tablet 40 mg PO BEDTIME #90 tabs 10/15/22 lisinopril 20 mg tablet 20 mg PO DAILY #90 tabs 10/15/22 omeprazole 20 mg capsule,delayed 20 mg PO DAILY #90 caps 10/15/22 release famotidine 20 mg tablet 20 mg PO BEDTIME #30 tabs 03/26/23 apixaban 5 mg tablet (Eliquis) 5 mg PO BID #60 tabs 12/11/24 Allergies Allergy/AdvReac Type Severity Reaction Status Date / Time No Known Drug Allergies Allergy Verified 12/11/24 12:36 Review of Systems Review of Systems ROS Unobtainable: All systems reviewed & are unremarkable except as noted in HPI and below Patient History Medical History GERD (gastroesophageal reflux disease) Atypical chest pain Hypertension (~1997) Hyperlipidemia History of stroke (~2018) Diabetes Social History marital status: number of children: 6 alcohol intake: never caffeine: Yes eating out: 1-3 times/week Type(s) of exercise: walking frequency: 3-4 times per week duration: 60-90 minutes/day Smoking Status: Never smoker alcohol intake frequency: holidays/special occasions only Exam Narrative Exam Narrative: General: Patient appears to be in no acute distress, acting appropriately Head: normocephalic, atraumatic, HEENT: Pupils equal round reactive, eyes tracking well, neck supple, no JVD Heart: irregular rhythm , no murmurs, rubs, or gallops heard Lungs: clear to auscultation, no adventitious sounds Abdomen: soft , nontender, nondistended, positive bowel sounds Neurological: no focal neurological signs, moving all extremities well, alert and oriented x3, Psych: good judgment ,good insight, mood is normal. Initial Vital Signs Initial Vital Signs: Vital Signs Temperature 98.6 F 12/11/24 12:36 Pulse Rate 79 12/11/24 12:36 Respiratory Rate 20 12/11/24 12:36 Blood Pressure 137/77 12/11/24 12:36 Pulse Oximetry 98 12/11/24 12:36 Oxygen Delivery Method Room Air 12/11/24 12:36 Course Course Course Narrative: We will do a cardiac workup. According to patient and his son, the patient is on Plavix and aspirin but otherwise not anticoagulated. No history of atrial fibrillation nor does he have a chief sustainability officer. Orders Ordered: ED Orders 12/11/24 12:46 XR chest 1V Stat EKG-12 Lead Stat 12/11/24 13:00 Complete Blood Count AUTO DIFF Stat Comprehensive Metabolic Panel Stat Lipase Stat Magnesium Stat NT-proBNP (BNP-Adult 18+) Stat PTT Partial Thromboplastin Akash Stat Prothrombin Time INR Stat Troponin & CK Cardiac Panel Stat Discontinued Medications Aspirin (Aspirin 81 Mg Chew Tab) 324 mg PO NOW ONE Stop: 12/11/24 12:47 Reevaluation(s) Reevaluation #1: Patient is resting comfortably at this time sitting in atrial fibrillation. Consultations Consultation #1: Dr. pena chief sustainability officer graciously answered the call and mentioned if the patient's Romulo S2 Vasc score is greater than 2 to be actually anticoagulated versus just Plavix and aspirin. Vital Signs Vital signs: Vital Signs - 8 hr 12/11/24 12:36 12/11/24 12:37 12/11/24 12:39 Temperature 98.6 F Pulse Rate 79 85 81 Respiratory Rate 20 11 L 16 Blood Pressure 137/77 Pulse Oximetry 98 98 98 Oxygen Delivery Method Room Air 12/11/24 12:39 12/11/24 13:00 12/11/24 13:30 Temperature Pulse Rate 77 76 Respiratory Rate 14 11 L Blood Pressure 137/77 Pulse Oximetry 99 98 Oxygen Delivery Method MDM - Arrhythmia/Palpitations Differential Diagnosis Differential diagnosis: Likely artial fibrillation, artial flutter and supraventricular tachycardia Lab Data 12/11/24 13:00 12/11/24 13:00 Labs: Lab Results 12/11/24 Range/Units 13:00 WBC 4.3 L (4.5-11.0) X10^3/uL RBC 4.16 L (4.5-5.9) X10^6/uL Hgb 12.6 L (13.5-17.5) g/dL Hct 36.9 L (41-53) % MCV 88.6 (80-100) fL MCH 30.3 (26-34) PG MCHC 34.1 (30-36) % RDW 13.8 (11.6-14.8) % Plt Count 207 (150-400) X10^3/uL Neut % (Auto) 66.1 (50-75) % Lymph % (Auto) 22.5 L (25-40) % [place] % (Auto) 7.8 (3-14) % Eos % (Auto) 2.8 (2-4) % Baso % (Auto) 0.8 (0-2) % Neut # (Auto) 2800 (9783-5139) /uL Lymph # (Auto) 1000 L (3871-0203) /uL [place] # (Auto) 300 (0-900) /uL Eos # (Auto) 100 (0-450) /uL Baso # (Auto) 0 (0-100) /uL PT 12.1 (9.4-12.5) SECONDS INR 1.1 (0.9-1.3) APTT 26 (25.1-36.5) SECONDS Sodium 137 (137-145) mmol/L Potassium 4.7 (3.4-5.1) mmol/L Chloride 102 (98-107) mmol/L Carbon Dioxide 27 (22-32) mmol/L BUN 15 (9-20) mg/dL Creatinine 1.26 H (0.66-1.25) mg/dL Estimated GFR > 60 (>60) mL/min BUN/Creatinine Ratio 11.9 (6-22) Glucose 181 H (70-99) mg/dL Calcium 9.2 (8.4-10.2) mg/dL Magnesium 1.8 (1.6-2.3) mg/dL Total Bilirubin 1.3 (0.2-1.3) mg/dL AST 37 (17-59) IU/L ALT 33 (<50) IU/L Alkaline Phosphatase 79 (38-126) U/L Total Creatine Kinase 98 (55-170) U/L Troponin I < 0.012 (0.01-0.034) ng/mL NT-Pro-B Natriuret Pep 177 H (<125) pg/mL Total Protein 7.7 (6.3-8.2) g/dL Albumin 4.4 (3.5-5.0) g/dL Globulin 3.3 (1.7-4.1) g/dL Albumin/Globulin Ratio 1.3 (1.0-2.8) Lipase 92 (23-300) U/L Urine Dip Bedside Urine Glucose 100 mg/dl Bedside Urine Bilirubin - Negative Bedside Urine Ketone - Negative Urine Specific [place] 1.005 Bedside Urine Occult Blood - Negative Bedside Urine pH 7.5 Bedside Urine Protein - Negative Bedside Urine Urobilinogen - Negative Bedside Urine Nitrite - Negative Bedside Urine Leukocytes - Negative Esterase ECG Data Interpretation: EKG shows an atrial fibrillation picture Previous EKG showed a normal sinus rhythm. MDM Narrative Medical decision making narrative: Since the patient's Romulo S2 vascular score is 5, we will anticoagulate the patient with Eliquis 5 mg twice a day and discontinue the clopidogrel and aspirin. Discharge Plan Departure Patient Disposition: Home Clinical Impression: Atrial fibrillation Qualifiers: Atrial fibrillation type: unspecified Qualified Code(s): I48.91 - Unspecified atrial fibrillation Instructions: DI for Atrial Fibrillation Activity Restrictions/Additional Instructions: Stopped taking the aspirin and clopidogrel or Plavix. Start taking new blood thinner called Eliquis 5 mg twice a day. Follow up with chief sustainability officer this week. Come back sooner to ER if ever having any chest pain or shortness of breath that worsens. Prescriptions: New Eliquis 5 mg tablet 5 mg PO BID Qty: 60 0RF No Action aspirin 81 mg tablet,delayed release (DR/EC) 81 mg PO DAILY Qty: 90 3RF atorvastatin 40 mg tablet 40 mg PO BEDTIME Qty: 90 3RF Rx Instructions: NEEDS APPT BEFORE NEXT FILL AND LABS!! lisinopril 20 mg tablet 20 mg PO DAILY Qty: 90 3RF Rx Instructions: NEEDS APPT MADE AND LABS BEFORE NEXT FILL! omeprazole 20 mg capsule,delayed release(DR/EC) 20 mg PO DAILY Qty: 90 3RF famotidine 20 mg tablet 20 mg PO BEDTIME Qty: 30 0RF metformin 500 mg tablet 500 mg PO BID Rybelsus 7 mg tablet 7 mg PO DAILY Ozempic 0.25 mg or 0.5 mg (2 mg/3 mL) pen injector 0.25 mg SUBCUT QWEEK Rx Instructions: for 4 weeks Referrals: Khoa Pena MD [Physician, Cardiology] Jennifer Carranza MD [Primary Care Provider, Family Practice] Stand Alone Forms: Patient Portal/API
== END 2024-12-11 15:03 | disposition home or self-care (01) ==
PROVIDERS: Emergency Provider Family Medicine; PCP Family Medicine
DX: I48.91 Unspecified atrial fibrillation (principal); I69.998 Other sequelae following unspecified cerebrovascular disease
CPT/HCPCS: 36415; 71045; 80053; 81003; 82550; 83690; 83735; 83880; 84484; 85025; 85610; 85730; 93005; 99283; 99284

== ENCOUNTER → 2025-04-10 11:27 | Outpatient (CLI) | payer MEDICARE, MEDICAID, SELFPAY ==
[2025-04-11 06:39] LABS: PSA, Total 3.7 ng/mL (0.0-4.0)
== END ==
PROVIDERS: Urology; PCP Family Medicine; Referring Provider Family Medicine; Visit Provider Family Medicine
DX: E11.9 Type 2 diabetes mellitus without complications (principal); R97.20 Elevated prostate specific antigen [PSA]
CPT/HCPCS: 36415; 84153; 84154